=== PATIENT | female | born 1950 | race Caucasian/White ===

== ENCOUNTER 2016-08-31 13:35 | Inpatient (IN) | payer MEDICARE ==
--- NOTE | 2016-08-31 14:16 | ED ---
General Adult HPI - General Chief complaint: Arrhythmia/Palpitations Stated complaint: Pacemaker and defilultor went off/SOB Time Seen by Provider: 08/31/16 13:50 Source: patient, RN notes reviewed Mode of arrival: wheelchair Limitations: no limitations - History of Present Illness Initial comments: This is a 66-year-old female with past medical history significant for coronary artery disease hypertension and a pacer defibrillator placement back 5 or 6 years ago. Patient suggested while she was in the bathroom she believed her defibrillator went off twice. She's never had a cough before. He states she had no symptoms prior to the shock from the definitive earlier she states she's had no symptoms since. She denies any palpitations she denies any chest pain difficulty breathing shortness of breath. Patient denies being lightheaded or dizzy. Patient states she's not been sick recently she's had no recent fever chills or cough. Patient denies any abdominal pain. Patient denies nausea vomiting diarrhea. - Related Data Home Medications Medication Instructions Recorded Confirmed Clopidogrel Bisulfate [Clopidogrel] 75 mg PO DAILY 01/05/14 08/31/16 DULoxetine HCL 60 mg PO DAILY 01/05/14 08/31/16 Ondansetron HCl 4 mg PO TID 01/05/14 08/31/16 Benzonatate [Tessalon Perles] 100 mg PO TID PRN 01/06/14 08/31/16 Carvedilol [Coreg] 12.5 mg PO BID 01/06/14 08/31/16 Cholecalciferol [Vitamin D3] 5,000 unit PO DAILY@1200 01/06/14 08/31/16 Levothyroxine Sodium [Synthroid] 125 mcg PO DAILY 01/06/14 08/31/16 Omeprazole [PriLOSEC] 20 mg PO AC-BRKFST 01/06/14 08/31/16 Potassium Chloride [Klor-Con 10] 10 meq PO BID 01/06/14 08/31/16 Vitamin B Complex 1 tab PO DAILY 01/06/14 08/31/16 clonazePAM [KlonoPIN] 2 mg PO HS 01/06/14 08/31/16 hydrOXYzine HCL 20 mg PO TID PRN 01/06/14 08/31/16 tiZANidine HCL [Zanaflex] 8 mg PO Q8HR PRN 01/06/14 08/31/16 Aspirin 650 mg PO TID PRN 08/31/16 08/31/16 Atorvastatin [Lipitor] 40 mg PO DAILY 08/31/16 08/31/16 Furosemide [Lasix] 20 mg PO HS 08/31/16 08/31/16 Furosemide [Lasix] 40 mg PO BID@0900,1400 08/31/16 08/31/16 Lisinopril [Prinivil] 5 mg PO DAILY 08/31/16 08/31/16 fentaNYL [Duragesic 100MCG/HR] 1 patch TRANSDERM Q72H 08/31/16 08/31/16 oxyCODONE-APAP 10-325MG [Percocet 1 tab PO Q4-6H PRN 08/31/16 08/31/16 10-325 mg] traZODone HCL [Desyrel] 100 mg PO HS 08/31/16 08/31/16 Allergies Allergy/AdvReac Type Severity Reaction Status Date / Time doxycycline Allergy Swelling Verified 08/31/16 14:31 allopurinol AdvReac Unknown Verified 08/31/16 14:31 gabapentin [From Neurontin] AdvReac Unknown Verified 08/31/16 14:31 peppermint AdvReac Vomiting Verified 08/31/16 14:31 pregabalin [From Lyrica] AdvReac Unknown Verified 08/31/16 14:31 Review of Systems ROS Statement: Those systems with pertinent positive or pertinent negative responses have been documented in the HPI. ROS Other: All systems not noted in ROS Statement are negative. Past Medical History Past Medical History: Coronary Artery Disease (CAD), Heart Failure, Fibromyalgia , Hypertension, Renal Disease Additional Past Medical History / Comment(s): PACEMAKER/DEFIBRILLATOR History of Any Multi-Drug Resistant Organisms: None Reported Past Surgical History: Heart Catheterization, Hysterectomy, Pacemaker Past Anesthesia/Blood Transfusion Reactions: No Reported Reaction Type of Cardiac Device: Permanent Pacemaker Device Placement Date:: 09/2012 Past Psychological History: Anxiety, Depression Smoking Status: Former smoker Past Alcohol Use History: None Reported Past Drug Use History: None Reported General Exam - General Exam Comments Initial Comments: GENERAL: Patient is well-developed and well-nourished. Patient is nontoxic and well- hydrated and is in no acute distress. ENT: Neck is soft and supple. No significant lymphadenopathy is noted. Oropharynx is clear. Moist mucous membranes. Neck has full range of motion without eliciting any pain. EYES: The sclera were anicteric and conjunctiva were pink and moist. Extraocular movements were intact and pupils were equal round and reactive to light. Eyelids were unremarkable. PULMONARY: Unlabored respirations. Good breath sounds bilaterally. No audible rales rhonchi or wheezing was noted. CARDIOVASCULAR: There is a regular rate and rhythm without any murmurs gallops or rubs. Femoral pulses are equal bilaterally ABDOMEN: Soft and nontender with normal bowel sounds. No palpable organomegaly was noted. There is no palpable pulsatile mass. SKIN: Skin is clear with no lesions or rashes and otherwise unremarkable. NEUROLOGIC: Patient is alert and oriented x3. Cranial nerves II through XII are grossly intact. Motor and sensory are also intact. Normal speech, volume and content. Symmetrical smile. MUSCULOSKELETAL: Normal extremities with adequate strength and full range of motion. No lower extremity swelling or edema. No calf tenderness. LYMPHATICS: No significant lymphadenopathy is noted PSYCHIATRIC: Normal psychiatric evaluation. Normal interpersonal interactions appears functionally intact in deals appropriately with others. No signs of depression. No signs of anxiety. Limitations: no limitations Course Vital Signs 08/31/16 08/31/16 08/31/16 13:46 14:13 14:58 Temperature 99.2 F 98.5 F Pulse Rate 78 63 Pulse Rate [ 94 Coat Room Attendant ] Respiratory 16 18 Rate Blood Pressure 125/75 121/60 O2 Sat by Pulse 96 96 Oximetry 08/31/16 16:47 Temperature 98.0 F Pulse Rate 58 L Pulse Rate [ Coat Room Attendant ] Respiratory 16 Rate Blood Pressure 121/60 O2 Sat by Pulse 94 L Oximetry Medical Decision Making - Medical Decision Making EKG shows a ventricular paced rhythm at 70 bpm [place] interval is 132 QRS is 146 QT intervals 462 QTC is 498. Patient is in no distress currently and resting comfortably. We were unable to get the interrogation of the device done in the hospital we have been calling for 3-1/2 hours and we have yet to get a report. I spoke with Dr. Ly he did not want the patient to be discharged home unless a report could be red. He did not want the patient discharged home based on a verbal report. Spoke with Dr. Green's nurse practitioner I admitted the patient I consult cardiology - Lab Data Result diagrams: 08/31/16 14:25 08/31/16 14:25 Lab Results 08/31/16 08/31/16 08/31/16 Range/Units 14:25 14:25 14:25 WBC 6.7 (3.8-10.6) k/uL RBC 4.60 (3.80-5.40) m/uL Hgb 14.2 (11.4-16.0) gm/dL Hct 41.9 (34.0-46.0) % MCV 91.2 (80.0-100.0) fL MCH 31.0 (25.0-35.0) pg MCHC 34.0 (31.0-37.0) g/dL RDW 13.0 (11.5-15.5) % Plt Count 161 (150-450) k/uL Neutrophils % 52 % Lymphocytes % 37 % Monocytes % 6 % Eosinophils % 2 % Basophils % 1 % Neutrophils # 3.5 (1.3-7.7) k/uL Lymphocytes # 2.5 (1.0-4.8) k/uL Monocytes # 0.4 (0-1.0) k/uL Eosinophils # 0.1 (0-0.7) k/uL Basophils # 0.0 (0-0.2) k/uL PT (9.0-12.0) sec INR (<1.1) APTT (22.0-30.0) sec Sodium 140 (137-145) mmol/L Potassium 4.1 (3.5-5.1) mmol/L Chloride 98 (98-107) mmol/L Carbon Dioxide 34 H (22-30) mmol/L Anion Gap 8 mmol/L BUN 24 H (7-17) mg/dL Creatinine 0.84 (0.52-1.04) mg/dL Est GFR (MDRD) Af Amer >60 (>60 ml/min/1.73 sqM) Est GFR (MDRD) Non-Af >60 (>60 ml/min/1.73 sqM) Glucose 90 (74-99) mg/dL Calcium 8.9 (8.4-10.2) mg/dL Magnesium 1.8 (1.6-2.3) mg/dL Total Bilirubin 0.7 (0.2-1.3) mg/dL AST 27 (14-36) U/L ALT 35 (9-52) U/L Alkaline Phosphatase 65 (38-126) U/L Total Creatine Kinase 66 (30-135) U/L CK-MB (CK-2) 1.1 (0.0-2.4) ng/mL CK-MB (CK-2) Rel Index 1.7 Troponin I <0.012 (0.000-0.034) ng/mL Total Protein 7.1 (6.3-8.2) g/dL Albumin 4.0 (3.5-5.0) g/dL 08/31/16 Range/Units 14:25 WBC (3.8-10.6) k/uL RBC (3.80-5.40) m/uL Hgb (11.4-16.0) gm/dL Hct (34.0-46.0) % MCV (80.0-100.0) fL MCH (25.0-35.0) pg MCHC (31.0-37.0) g/dL RDW (11.5-15.5) % Plt Count (150-450) k/uL Neutrophils % % Lymphocytes % % Monocytes % % Eosinophils % % Basophils % % Neutrophils # (1.3-7.7) k/uL Lymphocytes # (1.0-4.8) k/uL Monocytes # (0-1.0) k/uL Eosinophils # (0-0.7) k/uL Basophils # (0-0.2) k/uL PT 9.5 (9.0-12.0) sec INR 0.9 (<1.1) APTT 25.8 (22.0-30.0) sec Sodium (137-145) mmol/L Potassium (3.5-5.1) mmol/L Chloride (98-107) mmol/L Carbon Dioxide (22-30) mmol/L Anion Gap mmol/L BUN (7-17) mg/dL Creatinine (0.52-1.04) mg/dL Est GFR (MDRD) Af Amer (>60 ml/min/1.73 sqM) Est GFR (MDRD) Non-Af (>60 ml/min/1.73 sqM) Glucose (74-99) mg/dL Calcium (8.4-10.2) mg/dL Magnesium (1.6-2.3) mg/dL Total Bilirubin (0.2-1.3) mg/dL AST (14-36) U/L ALT (9-52) U/L Alkaline Phosphatase (38-126) U/L Total Creatine Kinase (30-135) U/L CK-MB (CK-2) (0.0-2.4) ng/mL CK-MB (CK-2) Rel Index Troponin I (0.000-0.034) ng/mL Total Protein (6.3-8.2) g/dL Albumin (3.5-5.0) g/dL Disposition Clinical Impression: Defibrillator discharge Disposition: ADMITTED IP TO THIS HOSP Referrals: Anita Segal III, MD [Primary Care Provider] - 1-2 days Time of Disposition: 18:13
[2016-08-31 14:45] LABS: Basophils % (A) 1 %; CH 31.1; CHCM 34.2; Eosinophils # (A) 0.1 k/uL (0-0.7); Eosinophils % (A) 2 %; HCT 41.9 % (34.0-46.0); HDW 2.52; HGB 14.2 gm/dL (11.4-16.0); Luc # (Auto) 0.18; Luc % (Auto) 3; Lymphocytes # (A) 2.5 k/uL (1.0-4.8); Lymphocytes % (A) 37 %; MCV 91.2 fL (80.0-100.0); Mean Platelet Volume 6.4; Monocytes # (A) 0.4 k/uL (0-1.0); Monocytes % (A) 6 %; Neutrophils # (A) 3.5 k/uL (1.3-7.7); Neutrophils % (A) 52 %; WBC 6.7 k/uL (3.8-10.6); WBC (Perox) 6.09
[2016-08-31 14:56] LABS: INR 0.9 (<1.1); Partial Thromboplastin Time 25.8 sec (22.0-30.0); Prothrombin Time 9.5 sec (9.0-12.0)
[2016-08-31 15:01] LABS: ALT 35 U/L (9-52); AST 27 U/L (14-36); Alkaline Phosphatase 65 U/L (38-126); Anion Gap 8 mmol/L; Blood Urea Nitrogen 24 mg/dL (7-17); Calcium 8.9 mg/dL (8.4-10.2); Carbon Dioxide 34 mmol/L (22-30); Chloride 98 mmol/L (98-107); Glucose 90 mg/dL (74-99); Magnesium 1.8 mg/dL (1.6-2.3); Non-African American GFR(MDRD) >60 (>60 ml/min/1.73 sqM); Potassium 4.1 mmol/L (3.5-5.1); Sodium 140 mmol/L (137-145); Total Bilirubin 0.7 mg/dL (0.2-1.3); Total Protein 7.1 g/dL (6.3-8.2)
[2016-08-31] MEDS ORDERED: ONDANSETRON 4 MG/2 ML VIAL IVP STA (15:03)
[2016-08-31 15:09] LABS: Creatine Kinase 66 U/L (30-135)
--- NOTE | 2016-08-31 15:19 | XR ---
EXAMINATION TYPE: XR chest 2V DATE OF EXAM: 08/31/2016 COMPARISON: 10/11/2015 TECHNIQUE: PA and lateral views submitted. HISTORY: Chest pain FINDINGS: The lungs are clear and there is no pneumothorax, pleural effusion, or focal pneumonia. Cardiac dev ice noted. No overt failure. Heart size stable. IMPRESSION: 1. No acute process.
[2016-08-31 15:21] LABS: Creatine Kinase MB 1.1 ng/mL (0.0-2.4); Troponin I <0.012 ng/mL (0.000-0.034)
[2016-08-31] MEDS ORDERED: POTASSIUM CHLORIDE ER 10 MEQ TAB.ER.PRT PO STA (18:11)
[2016-08-31] MEDS ORDERED: SODIUM CHLORIDE 0.9% 1,000 ML IV ONE (18:14)
[2016-08-31] MEDS ORDERED: oxyCODONE-APAP 10-325MG 1 EACH TAB PO STA (20:47)
[2016-08-31] MEDS ORDERED: diphenhydrAMINE 25 MG CAP PO PRN (23:24)
[2016-08-31] MEDS ORDERED: DULoxetine HCL 30 MG CAPSULE.DR PO SCH (23:30)
[2016-08-31] MEDS ORDERED: clonazePAM 1 MG TAB PO SCH (23:30)
[2016-08-31] MEDS ORDERED: LATANOPROST 0.005% OPHTH DROPS 2.5 ML BTL LEFT EYE SCH (23:45)
[2016-08-31] MEDS ORDERED: LISINOPRIL 5 MG TAB PO SCH (23:45)
[2016-08-31] MEDS ORDERED: LEVOTHYROXINE 125 MCG TAB PO SCH (23:45)
[2016-08-31] MEDS ORDERED: traZODone HCL 100 MG TAB PO SCH (23:45)
[2016-08-31] MEDS ORDERED: ARTIFICIAL TEARS-HYPROMELLOSE DROPS 15 ML BTL LEFT EYE PRN (23:46)
[2016-08-31] MEDS ORDERED: FUROSEMIDE 40 MG TAB PO STA (23:47)
[2016-08-31] MEDS ORDERED: ONDANSETRON 4 MG/2 ML VIAL IVP PRN (23:48)
[2016-08-31] MEDS ORDERED: LORATADINE 10 MG TAB PO PRN (23:48)
[2016-09-01] MEDS: CLOPIDOGREL 75 MG TAB PO SCH ×2 (00:19→09:34)
[2016-09-01] MEDS: PANTOPRAZOLE 40 MG TABLET PO SCH ×2 (00:20→06:56)
[2016-09-01] MEDS: POTASSIUM CHLORIDE ER 10 MEQ TAB.ER.PRT PO SCH ×2 (00:20→09:34)
[2016-09-01] MEDS: tiZANidine 4 MG TAB PO PRN ×2 (00:20→11:16)
[2016-09-01] MEDS: oxyCODONE-APAP 10-325MG 1 EACH TAB PO PRN ×3 (00:21→11:18)
[2016-09-01] MEDS ORDERED: ATORVASTATIN 40 MG TAB PO SCH ×2 (01:15→21:00)
[2016-09-01] MEDS: CARVEDILOL 12.5 MG TAB PO SCH ×2 (01:30→06:56)
[2016-09-01] MEDS: hydrOXYzine HCL 10 MG TAB PO PRN ×2 (01:30→11:15)
[2016-09-01 02:36] VITALS: RESP 18
[2016-09-01] MEDS ORDERED: CARVEDILOL 12.5 MG TAB PO SCH (07:30)
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
[2016-09-01] MEDS ORDERED: FUROSEMIDE 40 MG TAB PO SCH (09:00)
[2016-09-01] MEDS ORDERED: ASPIRIN 81 MG CHEW PO SCH (09:00)
--- NOTE | 2016-09-01 11:07 | P.PN ---
Progress Note - Text This is an addendum to the dictated cardiology consultation. The patient has a history of severe nonischemic cardiomyopathy, post ICD implant who felt that she had the discharge from her device twice on the day before yesterday. She has mild chronic dyspnea on exertion and occasional peripheral edema. She has no prior history of device discharges. Her device was interrogated yesterday and showed no evidence of significant arrhythmia or any discharges. On the monitor she has no evidence of ventricle tachycardia arrhythmia. She is complaints as well of symptoms suggestive of hemidiaphragmatic pacing. We will obtain an echocardiogram with Doppler, continue the beta blockers and depending on her progress further recommendations will be made. Thank you for this consult we will follow with you.
[2016-09-01] MEDS: MAGNESIUM SULFATE-D5W PMX 1 GM in DEXTROSE/WATER 1 100ML.BAG IVPB SCH ×2 (11:16→12:52)
--- NOTE | 2016-09-01 12:14 | ECHOF ---
Referral Reason:aicd discharge MEASUREMENTS -------- HEIGHT: 160.0 cm WEIGHT: 84.8 kg BP: 110/69 IVSd: 1.0 cm (0.6 - 1.1) LVIDd: 4.0 cm (3.9 - 5.3) LVPWd: 1.3 cm (0.6 - 1.1) IVSs: 1.7 cm LVIDs: 1.6 cm LVPWs: 1.9 cm Ao Diam: 2.7 cm (2.0 - 3.7) AV Cusp: 1.5 cm (1.5 - 2.6) LA Diam: 3.6 cm (2.7 - 3.8) MV EXCURSION: 11.800 mm (> 18.000) MV EF SLOPE: 56 mm/s (70 - 150) EPSS: 0.6 cm MV E Fortino: 0.88 m/s MV DecT: 235 ms MV A Fortino: 0.93 m/s MV E/A Ratio: 0.95 RAP: 5.00 mmHg RVSP: 21.15 mmHg FINDINGS -------- Sinus rhythm. AICD Pacemaker This was a technically good study. Left ventricular wall thickness is normal. Overall left ventricular systolic function is normal with, an EF between 55 - 60 %. The right ventricle is normal in size and function. The left atrium is normal in size. The right atrium is normal in size. Aortic valve is trileaflet and is mildly thickened. There is trace mitral regurgitation. Trace tricuspid regurgitation present. The right ventricular systolic pressure, as measured by Doppler, is 21.15mmHg. Pulmonic valve appears structurally normal. The aortic root size is normal. Normal inferior vena cava with normal inspiratory collapse consistent with estimated right atrial pressure of 5 mmHg. The pericardium is normal. CONCLUSIONS -------- 1. Sinus rhythm. 2. Aortic valve is trileaflet and is mildly thickened. 3. There is trace mitral regurgitation. 4. Trace tricuspid regurgitation present. 5. The right ventricular systolic pressure, as measured by Doppler, is 21.15mmHg. 6. Pulmonic valve appears structurally normal. 7. The aortic root size is normal. 8. Normal inferior vena cava with normal inspiratory collapse consistent with estimated right atrial pressure of 5 mmHg. 9. The pericardium is normal. 10. AICD 11. Pacemaker 12. This was a technically good study. 13. Left ventricular wall thickness is normal. 14. Overall left ventricular systolic function is normal with, an EF between 55 - 60 %. 15. The right ventricle is normal in size and function. 16. The left atrium is normal in size. 17. The right atrium is normal in size. ESTIMATION MANAGER: Chiquita Rubin RDCS
[2016-09-01 12:59] VITALS: BP 111/57; PULSE 66; TEMP 98.2
--- NOTE | 2016-09-01 19:17 | HP ---
DATE OF ADMISSION: This dictation is both H&P and discharge summary. REASON FOR ADMISSION: ( ) This is an 78-year-old with nonischemic cardiomyopathy with AICD implantation, came in with an episode that does not look like typically any discharge for the AICD. Had an episode where patient felt like she was thrown onto the door and she thought she may have ( ). Because of this the patient came to the hospital. The patient's electrolytes are essentially within normal limits except for magnesium of 1.8, which is being supplemented. The patient underwent AICD interrogation, which essentially did not show any significant abnormality or significant discharges or any ( ) abnormality or any significant events. Patient denied any fever or chills. Patient denied any chest pain at this point of time. Patient will be discharged when cleared. Patient was evaluated by Cardiology. REVIEW OF SYSTEMS: CONSTITUTIONAL: No fever, no malaise, no fatigue. HEENT: No recent visual problems or hearing problems. Denied any sore throat. CARDIOVASCULAR: No chest pain, orthopnea, PND, no palpitations, no syncope. PULMONARY: No shortness of breath, no cough, no hemoptysis. GASTROINTESTINAL: No diarrhea, no nausea, no vomiting, no abdominal pain. Normoactive bowel sounds. NEUROLOGICAL: No headaches, no weakness, no numbness. HEMATOLOGICAL: Denies any bleeding or petechiae. GENITOURINARY: Denies any burning micturition, frequency, or urgency. MUSCULOSKELETAL/RHEUMATOLOGICAL: Denies any joint pain, swelling, or any muscle pain. ENDOCRINE: Denies any polyuria or polydipsia. The rest of the 14 point review of systems is negative. PAST MEDICAL HISTORY: Congestive heart failure, nonischemic cardiomyopathy, fibromyalgia, hypertension. The patient has mitral valve prolapse. Cardiac catheterization, hysterectomy, AICD placement. Anxiety and depression. SOCIAL HISTORY: Former smoker, denied any alcohol abuse or any drug abuse. FAMILY HISTORY: Father had coronary artery disease. Mother had cancer. HOME MEDICATIONS: Plavix, Duloxetine, odansetron, Tessalon Perles, Coreg, cholecalciferol, levothyroxine, omeprazole, potassium chloride, vitamin B, clonazepam, hydroxyzine, ( ), aspirin, atorvastatin, Lasix, atenolol, lisinopril, Benadryl, ( ), oxycodone, and trazodone. ALLERGIES: ( ), ALLOPURINOL, GABAPENTIN, ( ), PREGABALIN. PHYSICAL EXAMINATION: Temperature 97.4, pulse 67, respiratory rate of 18, blood pressure 145/66, saturating at 93% on room air. GENERAL: The patient is alert and oriented x3, not in any acute distress. Well developed, well nourished. HEENT: Pupils are round and equally reacting to light. EOMI. No scleral icterus. No conjunctival pallor. Normocephalic, atraumatic. No pharyngeal erythema. No thyromegaly. CARDIOVASCULAR: S1 and S2 present. No murmurs, rubs, or gallops. PULMONARY: Chest is clear to auscultation, no wheezing or crackles. ABDOMEN: Soft, nontender, nondistended, normoactive bowel sounds. No palpable organomegaly. MUSCULOSKELETAL: No joint swelling or deformity. EXTREMITIES: No cyanosis, clubbing, or pedal edema. NEUROLOGICAL: Gross neurological examination did not reveal any focal deficits. SKIN: No rashes. LABORATORY DATA: CBC and CMP no significant abnormalities were appreciated except for magnesium as mentioned above. Troponins are negative. ASSESSMENT AND PLAN: 1. Possibility of automatic implantable cardiovascular defibrillator discharge ruled out and patient's electrolytes are being corrected and patient is being discharged. 2. Nonischemic cardiomyopathy without any acute exacerbation. 3. Hyperlipidemia. 4. Hypertension. 5. ( ). Patient had an echocardiogram during this hospitalization. Patient was evaluated by Cardiology. Patient has normal ejection fraction now. Patient will be discharged today with follow up with his repair servicer, Dr. Laureen Ruiz as an outpatient. This dictation is both H&P and discharge summary. Discharge diet cardiac. CHF discharge instructions will be provided. Patient will follow with Dr. Jonnie Segal on September 06 at 2:45. Activity as tolerated.
[2016-09-01] MEDS ORDERED: FUROSEMIDE 20 MG TAB PO SCH (21:00)
[2016-09-01] MEDS ORDERED: LISINOPRIL 5 MG TAB PO SCH (21:00)
== END 2016-09-01 14:16 | disposition home or self-care (01) | DRG 951 ==
LOC: EC 13:35 → 6SEL 18:14
PROVIDERS: ADMIT Hospitalist; ATTEND Hospitalist
DX: Z03.89 Encounter for observation for other suspected diseases and conditions ruled out (principal); I42.9 Cardiomyopathy, unspecified; I11.0 Hypertensive heart disease with heart failure; I50.9 Heart failure, unspecified; E03.9 Hypothyroidism, unspecified; E78.5 Hyperlipidemia, unspecified; I25.10 Atherosclerotic heart disease of native coronary artery without angina pectoris; I34.1 Nonrheumatic mitral (valve) prolapse; M79.7 Fibromyalgia; F32.9 Major depressive disorder, single episode, unspecified; F41.9 Anxiety disorder, unspecified; I65.29 Occlusion and stenosis of unspecified carotid artery; Z95.810 Presence of automatic (implantable) cardiac defibrillator; Z79.02 Long term (current) use of antithrombotics/antiplatelets; Z79.82 Long term (current) use of aspirin; Z79.899 Other long term (current) drug therapy; Z87.891 Personal history of nicotine dependence; Z88.1 Allergy status to other antibiotic agents; Z88.8 Allergy status to other drugs, medicaments and biological substances; Z82.49 Family history of ischemic heart disease and other diseases of the circulatory system
CPT/HCPCS: 36415; 71020; 80053; 82550; 82553; 83735; 84484; 85025; 85610; 85730; 93005; 93306; 96374; 99285

== ENCOUNTER 2018-03-06 11:26 | Day surgery (SDC) | payer MEDICARE ==
[2018-03-01 14:54] VITALS: BMI 34.9
[~2018-03-06 11:26] MED LIST: SODIUM CHLORIDE 0.9% 1,000 ML IV SCH; ceFAZolin 1,000 MG in SODIUM CHLORIDE 0.9% IRRIGATIO 1,000 ML IRRIGATION ONE; ceFAZolin 1,000 MG in SODIUM CHLORIDE 0.9% IRRIGATIO 250 ML IRRIGATION ONE; ceFAZolin 2,000 MG in DEXTROSE/WATER 1 50ML.BAG IVPB STA; ceFAZolin IN SWFI 2 GM/20 ML SYRINGE IVP STA
[2018-03-06] MEDS ORDERED: fentaNYL (PF) 50 MCG/ML 2 ML AMP IVP STA (14:14)
[2018-03-06 14:15] LABS: Glucose,Whole Blood 99 mg/dL (75-99)
[2018-03-06] MEDS ORDERED: PROPOFOL 10 MG/ML 20 ML VIAL IV ONE (15:55)
[2018-03-06] MEDS ORDERED: fentaNYL (PF) 50 MCG/ML 2 ML AMP ONE (15:55)
[2018-03-06] MEDS ORDERED: PHENYLEPHRINE-0.9% NACL SYG 1 MG/10 ML SYRINGE ONE (15:55)
[2018-03-06] MEDS ORDERED: MIDAZOLAM 2 MG/2 ML VIAL ONE (15:55)
[2018-03-06] MEDS ORDERED: LIDOCAINE 1% INJ 10MG/ML (20 ML MDV) ONE (16:19)
[2018-03-06] MEDS ORDERED: HYDROcodone/APAP 5-325MG 1 EACH TAB PO PRN (16:22)
[2018-03-06] MEDS ORDERED: ACETAMINOPHEN TAB 325 MG TAB PO PRN (16:22)
[2018-03-06] MEDS ORDERED: LIDOCAINE 1% INJ 10MG/ML (20 ML MDV) SQ ONE (16:37)
--- NOTE | 2018-03-06 17:42 | P.CRDCN ---
History of Present Illness History of present illness: 2-D echo images were reviewed. Technically difficult study was suboptimal acoustic windows reduced LV systolic function with anterior and septal hypokinesis, severe. The inferior lateral wall appears better preserved. Ejection fraction 40-45% Past Medical History Past Medical History: Heart Failure, Eye Disorder, Fibromyalgia, GERD/Reflux, Hyperlipidemia, Myocardial Infarction ([place]), Skin Disorder, Thyroid Disorder Additional Past Medical History / Comment(s): PACEMAKER/DEFIBRILLATOR. Carotid Stenosis. Congential MVP. RBBB. Hx viral meningitis. EPISODE OF KIDNEY FAILURE X1. GLAUCOMA MARIAN EYES. "TEND TO GET LOW BLOOD SUGAR." SEASONAL ALLERGIES/SINUS. See Dr Leo's H&P. PT STATES SHE HAS NO B/P PROBLEMS Last Myocardial Infarction Date:: UNKNOWN History of Any Multi-Drug Resistant Organisms: None Reported Past Surgical History: AICD, Bladder Surgery, Heart Catheterization, Hysterectomy, Pacemaker Additional Past Surgical History / Comment(s): 2 Failed Bladder Suspensions. MARIAN CATARACTS. Past Anesthesia/Blood Transfusion Reactions: Blood Transfusion Reaction Additional Past Anesthesia/Blood Transfusion Reaction / Comment(s): DEVELOPED WELTS ON BUTTOCKS W/ TRANSFUSION IN PAST. Type of Cardiac Device: Permanent Pacemaker, AICD Device Placement Date:: 09/2012 Smoking Status: Current every day smoker - Past Family History Father Family Medical History: Coronary Artery Disease (CAD) Mother Family Medical History: Cancer Medications and Allergies Home Medications Medication Instructions Recorded Confirmed Type Ondansetron HCl 4 mg PO TID PRN 01/05/14 03/01/18 History Benzonatate [Tessalon Perles] 100 mg PO TID PRN 01/06/14 03/06/18 History Levothyroxine Sodium [Synthroid] 125 mcg PO HS 01/06/14 03/06/18 History Omeprazole [PriLOSEC] 20 mg PO BID 01/06/14 03/06/18 History Potassium Chloride [Klor-Con 10] 10 meq PO BID 01/06/14 03/06/18 History tiZANidine HCL [Zanaflex] 8 mg PO TID 01/06/14 03/06/18 History Aspirin 325 mg PO BID 08/31/16 03/06/18 History Dextran 70/Hypromellose [Genteal 1 drop BOTH EYES DAILY 08/31/16 03/06/18 History Tears 0.1%-0.3% Drop] Furosemide [Lasix] 20 mg PO HS 08/31/16 03/06/18 History Furosemide [Lasix] 40 mg PO BID@0900,1400 08/31/16 03/06/18 History Latanoprost Ophth [Xalatan 0.005%] 1 drop LEFT EYE HS 08/31/16 03/06/18 History oxyCODONE-APAP 10-325MG [Percocet 1 tab PO Q4-6H PRN 08/31/16 03/06/18 History 10-325 mg] traZODone HCL [Desyrel] 25 mg PO HS PRN 08/31/16 03/06/18 History DULoxetine HCL [Cymbalta] 120 mg PO HS 01/04/18 03/06/18 History clonazePAM [KlonoPIN] 2 mg PO HS 01/04/18 03/06/18 History fentaNYL 75MCG/HR PATCH [Duragesic 1 patch TOPICAL Q2D 03/01/18 03/06/18 History 75MCG/HR] hydrOXYzine HCL [Atarax] 50 mg PO TID PRN 03/01/18 03/06/18 History Atorvastatin [Lipitor] 10 mg PO DAILY #90 tab 03/06/18 Rx Losartan [Cozaar] 25 mg PO DAILY #90 tab 03/06/18 Rx Metoprolol Succinate [Kapspargo 25 mg PO DAILY #90 cap.spr.24 03/06/18 Rx Sprinkle] Allergies Allergy/AdvReac Type Severity Reaction Status Date / Time doxycycline Allergy Swelling Verified 03/01/18 14:43 sulfamethoxazole AdvReac Severe Nausea Verified 03/01/18 14:43 [From Bactrim] trimethoprim [From Bactrim] AdvReac Severe Nausea Verified 03/01/18 14:43 allopurinol AdvReac "kidneys Verified 03/01/18 14:43 shut down" gabapentin [From Neurontin] AdvReac Nausea & Verified 03/01/18 14:43 Vomiting peppermint AdvReac Vomiting Verified 03/01/18 14:43 pregabalin [From Lyrica] AdvReac "memory Verified 03/01/18 14:43 loss" Ujjmptw-Ckx-Ojl Reductase AdvReac PAINFUL Verified 03/01/18 14:43 Inhibitor JOINTS suvorexant [From Belsomra] AdvReac Hallucinati Verified 03/01/18 14:43 ons Physical Exam Vitals: Vital Signs Temp Pulse Resp BP Pulse Ox 03/06/18 15:45 97 03/06/18 14:31 16 95 03/06/18 11:45 97.9 F 100 18 149/81 94 L Intake and Output 03/06/18 03/06/18 03/06/18 06:59 14:59 22:59 Intake Total 125 0 Balance 125 0 Intake: IV 125 0 Other: Weight 89.1 kg Results Current Medications Generic Name Dose Route Start Last Admin Trade Name Freq PRN Reason Stop Dose Admin Acetaminophen 650 mg 03/06/18 16:22 Tylenol Tab PO Q6HR PRN Mild Pain Hydrocodone Bitart/Acetaminophen 1 each 03/06/18 16:22 [place] 5-325 PO Q4HR PRN Pain Aspirin 325 mg 03/06/18 21:00 Aspirin PO BID ARUN Atorvastatin Calcium 10 mg 03/07/18 09:00 Lipitor PO DAILY ARUN Cefazolin Sodium 2 gm 03/06/18 22:00 Kefzol IVP 03/07/18 12:01 Q6HR ARUN Fentanyl 1 patch 03/06/18 16:30 Duragesic 75mcg/Hr Patch TRANSDERM Q2D ARUN Acetaminophen 1,000 mg/ IV 100 mls @ 400 mls/hr 03/06/18 18:00 Solution IVPB 03/06/18 18:14 ONCE ONE Losartan Potassium 12.5 mg 03/07/18 09:00 Cozaar PO DAILY ARUN Metoprolol Succinate 12.5 mg 03/07/18 09:00 Toprol Xl PO DAILY ARUN Sodium Chloride 10 ml 03/06/18 21:00 Saline Flush IV Q12HR ARUN Intake and Output 03/06/18 03/06/18 03/06/18 06:59 14:59 22:59 Intake Total 125 0 Balance 125 0 Intake: IV 125 0 Other: Weight 89.1 kg Patient Weight 03/07/18 06:59 Weight 89.1 kg
[2018-03-06] MEDS ORDERED: ACETAMINOPHEN IV (For NPO) 1,000 MG in EMPTY BAG 1 BAG IVPB ONE (18:00)
[2018-03-06 19:02] VITALS: RESP 18
[2018-03-06] MEDS ORDERED: BENZONATATE 100 MG CAP PO PRN (20:14)
[2018-03-06] MEDS ORDERED: ONDANSETRON 4 MG TAB PO PRN (20:14)
[2018-03-06] MEDS ORDERED: FUROSEMIDE 20 MG TAB PO SCH (21:00)
[2018-03-06] MEDS ORDERED: LEVOTHYROXINE 125 MCG TAB PO SCH (21:00)
[2018-03-06] MEDS ORDERED: clonazePAM 1 MG TAB PO SCH (21:00)
[2018-03-06] MEDS ORDERED: traZODone HCL 50 MG TAB PO PRN (21:00)
[2018-03-06] MEDS ORDERED: LATANOPROST 0.005% OPHTH DROPS 2.5 ML BTL LEFT EYE SCH (21:00)
[2018-03-06] MEDS ORDERED: DULoxetine HCL 60 MG CAPSULE.DR PO SCH (21:00)
[2018-03-06] MEDS: tiZANidine 4 MG TAB PO SCH (21:10)
[2018-03-06] MEDS: PANTOPRAZOLE 40 MG TABLET PO SCH (21:11)
[2018-03-06] MEDS: ASPIRIN 325 MG TAB PO SCH (21:11)
[2018-03-06] MEDS: ceFAZolin IN SWFI 2 GM/20 ML SYRINGE IVP SCH (21:12)
[2018-03-06] MEDS: POTASSIUM CHLORIDE ER 10 MEQ TAB.ER.PRT PO SCH (21:12)
[2018-03-06] MEDS: oxyCODONE-APAP 10-325MG 1 EACH TAB PO PRN (21:22)
[2018-03-06] MEDS: hydrOXYzine HCL 25 MG TAB PO PRN (21:25)
[2018-03-07] MEDS: oxyCODONE-APAP 10-325MG 1 EACH TAB PO PRN ×3 (02:26→10:44)
[2018-03-07] MEDS: ceFAZolin IN SWFI 2 GM/20 ML SYRINGE IVP SCH ×3 (03:24→14:13)
[2018-03-07] MEDS: POTASSIUM CHLORIDE ER 10 MEQ TAB.ER.PRT PO SCH (07:51)
[2018-03-07] MEDS: ASPIRIN 325 MG TAB PO SCH (07:51)
[2018-03-07] MEDS: FUROSEMIDE 40 MG TAB PO SCH ×2 (07:51→14:19)
[2018-03-07] MEDS: PANTOPRAZOLE 40 MG TABLET PO SCH (07:52)
[2018-03-07] MEDS: tiZANidine 4 MG TAB PO SCH (07:52)
[2018-03-07] MEDS: hydrOXYzine HCL 25 MG TAB PO PRN (08:05)
--- NOTE | 2018-03-07 08:05 | P.DS ---
Providers Attending physician: Pastor Leo Primary care physician: [facility] Course: Patient is doing well. She has no chest discomfort dizziness lightheadedness or palpitations ICD site is healed well is no hematoma no bruising no shock H Heart sounds are normal breath sounds are clear Blood pressure 97/50 milligrams of mercury pulse rate is in the 60s afebrile Normal heart sounds Abdomen soft nontender Impression Cardiomyopathy status post biventricular ICD many years back device at [facility] and biventricular ICD generator change was performed Noncompliance with diet and medications States she is intolerant of atorvastatin because of muscle pains Beta blockers and current medications make her extremely sleepy Suggest Low-dose losartan in the morning Low-dose long-acting metoprolol at night Try Pravachol 10 mg by mouth daily instead of atorvastatin Continue other medications including Lasix Follow-up in the device clinic in one week, keep wound dry for one week Patient Condition at Discharge: Stable Plan - Discharge Summary Discharge Rx Participant: No New Discharge Prescriptions: New Atorvastatin [Lipitor] 10 mg PO DAILY #90 tab Losartan [Cozaar] 25 mg PO DAILY #90 tab Metoprolol Succinate [Kapspargo Sprinkle] 25 mg PO DAILY #90 cap.spr.24 No Action Ondansetron HCl 4 mg PO TID PRN PRN Reason: Nausea And Vomiting tiZANidine HCL [Zanaflex] 8 mg PO TID Benzonatate [Tessalon Perles] 100 mg PO TID PRN PRN Reason: Congestion Levothyroxine Sodium [Synthroid] 125 mcg PO HS Omeprazole [PriLOSEC] 20 mg PO BID Potassium Chloride [Klor-Con 10] 10 meq PO BID Furosemide [Lasix] 40 mg PO BID@0900,1400 Furosemide [Lasix] 20 mg PO HS oxyCODONE-APAP 10-325MG [Percocet 10-325 mg] 1 tab PO Q4-6H PRN PRN Reason: Breakthrough Pain traZODone HCL [Desyrel] 25 mg PO HS PRN PRN Reason: depression Aspirin 325 mg PO BID Latanoprost Ophth [Xalatan 0.005%] 1 drop LEFT EYE HS Dextran 70/Hypromellose [Genteal Tears 0.1%-0.3% Drop] 1 drop BOTH EYES DAILY clonazePAM [KlonoPIN] 2 mg PO HS DULoxetine HCL [Cymbalta] 120 mg PO HS hydrOXYzine HCL [Atarax] 50 mg PO TID PRN PRN Reason: Itching fentaNYL 75MCG/HR PATCH [Duragesic 75MCG/HR] 1 patch TOPICAL Q2D Discharge Medication List Ondansetron HCl 4 mg PO TID PRN 01/05/14 [History] Benzonatate [Tessalon Perles] 100 mg PO TID PRN 01/06/14 [History] Levothyroxine Sodium [Synthroid] 125 mcg PO HS 01/06/14 [History] Omeprazole [PriLOSEC] 20 mg PO BID 01/06/14 [History] Potassium Chloride [Klor-Con 10] 10 meq PO BID 01/06/14 [History] tiZANidine HCL [Zanaflex] 8 mg PO TID 01/06/14 [History] Aspirin 325 mg PO BID 08/31/16 [History] Dextran 70/Hypromellose [Genteal Tears 0.1%-0.3% Drop] 1 drop BOTH EYES DAILY [History] Furosemide [Lasix] 20 mg PO HS 08/31/16 [History] Furosemide [Lasix] 40 mg PO BID@0900,1400 08/31/16 [History] Latanoprost Ophth [Xalatan 0.005%] 1 drop LEFT EYE HS 08/31/16 [History] oxyCODONE-APAP 10-325MG [Percocet 10-325 mg] 1 tab PO Q4-6H PRN 08/31/16 [ History] traZODone HCL [Desyrel] 25 mg PO HS PRN 08/31/16 [History] DULoxetine HCL [Cymbalta] 120 mg PO HS 01/04/18 [History] clonazePAM [KlonoPIN] 2 mg PO HS 01/04/18 [History] fentaNYL 75MCG/HR PATCH [Duragesic 75MCG/HR] 1 patch TOPICAL Q2D 03/01/18 [ History] hydrOXYzine HCL [Atarax] 50 mg PO TID PRN 03/01/18 [History] Atorvastatin [Lipitor] 10 mg PO DAILY #90 tab 03/06/18 [Rx] Losartan [Cozaar] 25 mg PO DAILY #90 tab 03/06/18 [Rx] Metoprolol Succinate [Kapspargo Sprinkle] 25 mg PO DAILY #90 cap.spr.24 [Rx] Follow up Appointment(s)/Referral(s): Seth Ruiz MD [STAFF PHYSICIAN] - 1 Week (Device clinic follow-up in [address] Ruiz as previously scheduled) Activity/Diet/Wound Care/Special Instructions: PATIENT EDUCATION MATERIAL Instructions following a heart rhythm device implant. 1. Keep dressing DRY for 5 DAYS. You may cover the area with Saran or Cling Wrap, prior to a shower. 2. The dressing will be removed in the Device Clinic at [facility]. Absorbable sutures were used to close the wound. 3. Avoid raising the left arm above the shoulder level. 4 week restriction 4. Avoid arm movements, like backscratching, rubbing the head, or pulling on a cord. 4 weeks restriction 5. Gentle range of motion movements of the shoulder, closest to the incision should be performed to avoid a frozen shoulder. (Pendulum exercises of the shoulder) 6. The opposite arm may be used freely. 7. Avoid driving for 7 days. 8. Avoid activities such as golfing, swimming, weed whacking, lifting more than 10 pounds weight, bowling, gymnastics and weight training/lifting. (6 weeks restriction) 9. Activities such as wood chopping with an axe, pull-ups in the gymnasium, power lifting, arc-welding, being close to home induction cooktops will always be a problem. 10. Arm sling is only a reminder not to raise the arm above the head. You do not need to keep the arm completely immobilized. Your free to move the arm and use it and for normal activities. In case of any problems, please call [facility] [place], @ [phone], Attention: Device Clinic Device clinic follow-up in 5 days Follow-up with primary shank piece tacker in 2-3 months Discharge Disposition: HOME SELF-CARE
[2018-03-07] MEDS ORDERED: LOSARTAN 25 MG TAB PO SCH (09:00)
[2018-03-07] MEDS ORDERED: ARTIFICIAL TEARS-HYPROMELLOSE DROPS 15 ML BTL BOTH EYES SCH (09:00)
[2018-03-07] MEDS ORDERED: METOPROLOL SUCCINATE (ER) 25 MG TAB.ER.24H PO SCH (09:00)
[2018-03-07] MEDS ORDERED: ATORVASTATIN 10 MG TAB PO SCH (09:00)
--- NOTE | 2018-03-07 10:06 | ECHOF ---
Referral Reason:PRE-BIV-ICD GEN CHANGE/CARDIOMYOPATHY MEASUREMENTS -------- HEIGHT: 160.0 cm WEIGHT: 90.7 kg BP: RVIDd: 2.7 cm (< 3.3) IVSd: 1.4 cm (0.6 - 1.1) LVIDd: 3.9 cm (3.9 - 5.3) LVPWd: 1.3 cm (0.6 - 1.1) IVSs: 1.4 cm LVIDs: 3.1 cm LVPWs: 1.6 cm LAESV Index (A-L): 23.34 ml/m Ao Diam: 2.7 cm (2.0 - 3.7) AV Cusp: 1.4 cm (1.5 - 2.6) LA Diam: 3.3 cm (2.7 - 3.8) MV E Fortino: 0.63 m/s MV DecT: 440 ms MV A Fortino: 1.08 m/s MV E/A Ratio: 0.58 RAP: 5.00 mmHg RVSP: 11.92 mmHg FINDINGS -------- Atrial fibrillation. This was a technically difficult study with suboptimal views. The left ventricular size is normal. There is mild concentric left ventricular hypertrophy. Overa ll left ventricular systolic function is mildly impaired with, an EF between 45 - 50 %. SEPTAL AND ANTERIOR HYPOKINESIS The right ventricle is normal in size and function. Normal LA size by volume 22+/-6 ml/m2. The right atrium was not well visualized. There is mild aortic valve sclerosis. There is no evidence of aortic regurgitation. There is no e vidence of aortic stenosis. Mild mitral annular calcification present. There is trace mitral regurgitation. Trace tricuspid regurgitation present. Right ventricular systolic pressure is normal at < 35 mmHg. There is no evidence of pulmonary hypertension. The pulmonic valve was not well visualized. The aortic root size is normal. Normal inferior vena cava with normal inspiratory collapse consistent with estimated right atrial pre ssure of 5 mmHg. There is no pericardial effusion. 3 ml of Lumason was utilized for enhancement of images. CONCLUSIONS -------- 1. Atrial fibrillation. 2. This was a technically difficult study with suboptimal views. 3. The left ventricular size is normal. 4. There is mild concentric left ventricular hypertrophy. 5. Overall left ventricular systolic function is mildly impaired with, an EF between 45 - 50 %. 6. Normal LA size by volume 22+/-6 ml/m2. 7. The right atrium was not well visualized. 8. 3 ml of Lumason was utilized for enhancement of images. 9. There is mild aortic valve sclerosis. 10. Mild mitral annular calcification present. 11. There is trace mitral regurgitation. 12. Trace tricuspid regurgitation present. 13. Right ventricular systolic pressure is normal at < 35 mmHg. 14. There is no evidence of pulmonary hypertension. 15. The pulmonic valve was not well visualized. 16. The aortic root size is normal. 17. There is no pericardial effusion. CV/CVN CV TSC SYSTEM OPERATOR: Micheal Thompson RDCS
--- NOTE | 2018-03-07 10:21 | PCN ---
PROCEDURE NOTE Nidia Catalan is a 67-year-old female who had a biventricular ICD implanted several years back, the device is at [facility]. She was brought in for an ICD generator change. Patient was brought to the EP lab in a fasting state. Written informed consent was obtained prior to the procedure. The left shoulder area was prepped and draped as per protocol. 1% lidocaine was used for local anesthesia. A 4 cm incision was made parallel to the deltopectoral groove exactly over the previous surgical site and carried down to the level of the generator. The generator was explanted. The leads were freed from the capsule. Partial capsulectomy was performed. Hemostasis was assured. The pocket was irrigated with antibiotic solution. The Bi V ICD generator was explanted. The new generator was implanted, leads were interrogated. The P waves are 3.8 mV. Pacing impedance 456 ohms, pacing threshold 0.75 V at 0.4 milliseconds. RV sensing was 7.8 mV. Pacing impedance 456 ohms. High-voltage impedance 88 ohms, pacing threshold 1.25 V at 0.4 milliseconds. The LV pacing impedance 456 ohms pacing threshold 2.5 V at 0.4 milliseconds. The new generator was implanted. The wound was closed in 3 layers and dressed per protocol. The new generator was a CRTD Medtronic Viva XT, model number DTB A1D, serial number [id number]. Leads and generator were then placed in subfascial pocket. The wound was closed in 3 layers and dressed per protocol. RESULT: Successful biventricular ICD generator change. There is also successful biventricular ICD generator change for device at [facility]. MMCRISTOPHER / IJN: [id number] /
[2018-03-07 11:40] VITALS: BP 116/72; PULSE 65; TEMP 97.7
== END 2018-03-07 14:51 | disposition home or self-care (01) ==
LOC: CATHEP 11:26 → 1SOBS 17:16 → CATHEP 03-07 14:51
PROVIDERS: ATTEND Internal Medicine Clinical Cardiac Electrophysiology
DX: Z45.02 Encounter for adjustment and management of automatic implantable cardiac defibrillator (principal); I48.91 Unspecified atrial fibrillation; I08.3 Combined rheumatic disorders of mitral, aortic and tricuspid valves; I42.0 Dilated cardiomyopathy; I11.0 Hypertensive heart disease with heart failure; I50.22 Chronic systolic (congestive) heart failure; Z91.11 Patient's noncompliance with dietary regimen; Z91.14 Patient's other noncompliance with medication regimen; M79.7 Fibromyalgia; K21.9 Gastro-esophageal reflux disease without esophagitis; E78.5 Hyperlipidemia, unspecified; E07.9 Disorder of thyroid, unspecified; L98.9 Disorder of the skin and subcutaneous tissue, unspecified; I45.2 Bifascicular block; H40.9 Unspecified glaucoma; J30.2 Other seasonal allergic rhinitis; F39 Unspecified mood [affective] disorder; I25.2 Old myocardial infarction; F17.210 Nicotine dependence, cigarettes, uncomplicated; Z79.890 Hormone replacement therapy; Z79.899 Other long term (current) drug therapy; Z79.82 Long term (current) use of aspirin; Z88.6 Allergy status to analgesic agent; Z88.1 Allergy status to other antibiotic agents; Z88.8 Allergy status to other drugs, medicaments and biological substances; Z82.49 Family history of ischemic heart disease and other diseases of the circulatory system
CPT/HCPCS: 33264; C8929; C1882; J2250; J0690 ×3; J2001; J3010; J2370; J2704; Q9950; 93306

== ENCOUNTER → 2019-10-03 | Outpatient (CLI) | payer MEDICARE ==
--- NOTE | 2019-10-03 17:05 | CONS ---
CONSULTATION DATE OF SERVICE: 10/03/2019 This patient is a 69-year-old lady who has been evaluated in the sleep center for possible obstructive sleep apnea-hypopnea syndrome. HISTORY OF PRESENT ILLNESS/SLEEP-WAKE EVALUATION: Patient's usual sleep schedule is from 9 or 11 p.m. until 9 a.m. No problems with falling asleep, but the patient wakes up from sleep 5 times with nocturia. She even knows the exact time when she wakes up: 1 a.m., 3 a.m., 5 a.m. She usually sleeps on the side position. She mentions a positive history of sleepwalking, sleeptalking and sweating. According to her, she may have history of hypnagogic hallucinations. In the morning she wakes up tired, falling asleep during the day. She worries about her sleep, has problems with memory, concentration, depression, anxiety. [place] Sleepiness Scale is in very high range at 18. PAST MEDICAL HISTORY: Positive for COPD, heart problems, including atrial fibrillation, CHF, mitral valve problems, fibromyalgia, sinusitis, headaches, hypothyroidism. PAST SURGICAL HISTORY: Hysterectomy, bladder suspension, pacemaker and defibrillator insertion. MEDICATIONS: Fentanyl, Percocet, Lasix, potassium, clonazepam, omeprazole, hydroxyzine. SOCIAL HISTORY: Positive for smoking one pack a day for 50 years. The patient continues to smoke. Alcohol consumption: None. REVIEW OF SYSTEMS: Multiple awakenings from sleep. Significant sleepiness during the day. PHYSICAL EXAMINATION: GENERAL: A pleasant lady without distress. VITAL SIGNS: BP 138/83, HR 80, RR 16, height 5 feet 3-1/2 inches, weight 204 pounds. Body mass index 35.5. Temperature 98.3, oxygen saturation at room air 94%. HEENT: PERRLA, EOMI. Evaluation of oropharynx showed tongue protrudes midline. Small oropharyngeal air space. Low position of soft palate. Wide pillars. NECK: Supple. No JVD. Thyroid is not palpable. Neck measures 14-1/4 inches in circumference. LUNGS: A few rales. HEART: S1, S2 regular. ABDOMEN: Soft and nontender. Bowel sounds are present. No organomegaly. EXTREMITIES: One plus bilateral ankle edema. CORPORATE SPECIALIST: Awake, alert, and oriented X3. Cranial nerves 2 to 7 intact. There is no fasciculation or atrophy. noted. No focal deficits observed. IMPRESSION: 1. Awakenings from sleep 5 times with nocturia, small oropharyngeal air space, significant excessive daytime sleepiness; obstructive sleep apnea-hypopnea syndrome. 2. Significant excessive daytime sleepiness. [place] Sleepiness Scale is 18, dictating necessity to include hypersomnia in the differential diagnosis. The patient has a questionable positive history of hypnagogic hallucinations. 3. History of sleeptalking. 4. History of sleepwalking. 5. Fifty-pack/year smoker. 6. Chronic obstructive pulmonary disease. 7. History of atrial fibrillation. 8. History of congestive heart failure. 9. History of right bundle branch block. 10.History of fibromyalgia. 11.History of sinusitis. 12.Headaches. 13.Hypothyroidism. PLAN: 1. Polysomnography for evaluation of patient's breathing during sleep. 2. CPAP/BiPAP titration if sleep study confirms obstructive sleep apnea-hypopnea syndrome. 3. Preferable position during sleep on the side. 4. No driving if patient feels any sleepiness. 5. I will see patient for follow-up visit to explain results of testing and following plan. Thank you very much for referring this patient for consultation. Sincerely, Leonides Araiza MD, PhD, FAASM Diplomat of [employer] Lactation Consultant of [facility] [place] MMODL / GRACIELAN: [id number] /
== END | disposition home or self-care (01) ==
CPT/HCPCS: 99211

== ENCOUNTER 2019-10-11 07:24 | Day surgery (SDC) | payer MEDICARE ==
[2019-10-09 16:11] VITALS: BMI 33.1
[~2019-10-11 07:24] MED LIST changes: +LACTATED RINGERS 1,000 ML IV SCH; -ceFAZolin 1,000 MG in SODIUM CHLORIDE 0.9% IRRIGATIO 1,000 ML IRRIGATION ONE; -ceFAZolin 1,000 MG in SODIUM CHLORIDE 0.9% IRRIGATIO 250 ML IRRIGATION ONE; -ceFAZolin 2,000 MG in DEXTROSE/WATER 1 50ML.BAG IVPB STA; -ceFAZolin IN SWFI 2 GM/20 ML SYRINGE IVP STA
[2019-10-11] MEDS ORDERED: SODIUM CHLORIDE 0.9% 500 ML 500 ML IV ONE ×2 (08:12→09:02)
[2019-10-11 08:14] VITALS: RESP 16; TEMP 98.3
[2019-10-11 08:39] LABS: African American GFR (CKD) >90 (>60 ml/min/1.73 sqM); Anion Gap 7 mmol/L; Blood Urea Nitrogen 12 mg/dL (7-17); Calcium 8.6 mg/dL (8.4-10.2); Carbon Dioxide 32 mmol/L (22-30); Chloride 100 mmol/L (98-107); Glucose 96 mg/dL (74-99); Non-African American GFR(CKD) 88 (>60 ml/min/1.73 sqM); Potassium 4.2 mmol/L (3.5-5.1); Sodium 139 mmol/L (137-145)
[2019-10-11] MEDS ORDERED: PROPOFOL 10 MG/ML 20 ML VIAL IV ONE (09:01)
--- NOTE | 2019-10-11 09:36 | P.PCN ---
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 Bipolar pacing impedance is 665 ohms Pacing threshold 2.75 V at 1 ms LV pacing impedance 513 ohms A shock and T wave protocol was used to induce ventricular fibrillation. 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
[2019-10-11 10:34] VITALS: BP 110/60; PULSE 60
== END 2019-10-11 10:34 | disposition home or self-care (01) ==
LOC: CATHEP 07:24
PROVIDERS: ATTEND Internal Medicine Clinical Cardiac Electrophysiology
DX: I42.8 Other cardiomyopathies (principal); I44.7 Left bundle-branch block, unspecified; I11.0 Hypertensive heart disease with heart failure; I50.22 Chronic systolic (congestive) heart failure; I25.2 Old myocardial infarction; E78.5 Hyperlipidemia, unspecified; F17.210 Nicotine dependence, cigarettes, uncomplicated; E07.9 Disorder of thyroid, unspecified; M79.7 Fibromyalgia; J44.9 Chronic obstructive pulmonary disease, unspecified; Z88.2 Allergy status to sulfonamides; Z88.8 Allergy status to other drugs, medicaments and biological substances; Z88.6 Allergy status to analgesic agent; Z79.890 Hormone replacement therapy; Z79.82 Long term (current) use of aspirin; Z79.51 Long term (current) use of inhaled steroids; Z79.899 Other long term (current) drug therapy
CPT/HCPCS: 93642; 76000; 80048; J2704

== ENCOUNTER → 2020-10-30 | Outpatient (CLI) | payer MEDICARE ==
--- NOTE | 2020-10-30 22:13 | CT ---
EXAMINATION TYPE: CT angio neck DATE OF EXAM: 10/30/2020 HISTORY: Right carotid stenosis. COMPARISON: None CT DLP: 257.9 mGycm. Automated Exposure Control for Dose Reduction was Utilized. TECHNIQUE: CTA scan of the neck is performed with IV Contrast, patient injected with 65 mL of Isovue 370, axial images are obtained, coronal and sagittal reformatted images are reviewed. Three-D recons tructed images are created on an independent workstation and reviewed. FINDINGS: Carotid/Vascular Structures: Three-vessel aortic arch. Atherosclerotic disease at the origin of the b ranch vessels without significant stenosis. Atherosclerotic plaque at the carotid bifurcations with 6 5% stenosis of the proximal right and 40% stenosis of the proximal left ICA. Atherosclerotic disease at the origin of the left vertebral artery remaining vessel is opacified. The right vertebral artery is opacified throughout its course. Intracranial vessels are Throughout its course Other: Emphysematous changes and a few small groundglass opacities at the lung apices. Visualized ai rway is patent. Degenerative changes of the spine. Partially calcified nodule of the right lobe of th e thyroid IMPRESSION: Atherosclerotic plaque at the carotid bifurcations with 65% stenosis of the proximal rig ht and 45% stenosis of the proximal left ICA. 3-D reformatted images confirm the above findings. NASCET criteria was used in interpretation of this exam?
== END | disposition home or self-care (01) ==
LOC: RADCTMAIN 14:07
PROVIDERS: ATTEND Thoracic Surgery (Cardiothoracic Vascular Surgery)
DX: I65.23 Occlusion and stenosis of bilateral carotid arteries (principal)
CPT/HCPCS: 82565; 84520; 70498; 36415; Q9967

== ENCOUNTER 2023-06-02 07:59 | Emergency (ER) | payer MEDICARE ==
--- NOTE | 2023-06-02 08:24 | ED ---
General Adult HPI - General Chief complaint: Recheck/Abnormal Lab/Rx Stated complaint: chronic pain Time Seen by Provider: 06/02/23 08:10 Source: patient, RN notes reviewed Mode of arrival: wheelchair Limitations: no limitations - History of Present Illness Initial comments: Patient is a 73-year-old female present to the emergency department with concer ns for chronic pain. Patient states she was taken off all of her pain medication in February. Patient lost her primary care physician and just got a new one a week ago. Patient is trying to get into a pain clinic. Patient does have fibromyalgia. Patient has pain from the top of her head to her knees. Pain is chronic and similar to previous pain. Patient also feels anxious. - Related Data Home Medications Medication Instructions Recorded Confirmed ondansetron HCL [Ondansetron HCl] 4 mg PO TID PRN 01/05/14 10/11/19 Benzonatate [Tessalon Perles] 100 mg PO TID PRN 01/06/14 10/11/19 Levothyroxine Sodium [Synthroid] 125 mcg PO HS 01/06/14 10/11/19 Omeprazole [PriLOSEC] 20 mg PO BID 01/06/14 10/11/19 Potassium Chloride [Klor-Con 10] 10 meq PO BID 01/06/14 10/11/19 tiZANidine HCL [Zanaflex] 8 mg PO TID 01/06/14 10/11/19 Aspirin 325 mg PO BID 08/31/16 10/11/19 Dextran 70/Hypromellose [Genteal 1 drop BOTH EYES DAILY 08/31/16 10/11/19 Tears 0.1%-0.3% Drop] Furosemide [Lasix] 20 mg PO HS 08/31/16 10/11/19 Furosemide [Lasix] 40 mg PO BID@0900,1400 08/31/16 10/11/19 Latanoprost Ophth [Xalatan 0.005%] 1 drop BOTH EYES HS 08/31/16 10/11/19 oxyCODONE-APAP 10-325MG [Percocet 1 tab PO Q4-6H PRN 08/31/16 10/11/19 10-325 mg] traZODone HCL [Desyrel] 25 mg PO HS PRN 08/31/16 10/11/19 DULoxetine HCL [Cymbalta] 120 mg PO HS 01/04/18 10/11/19 clonazePAM [KlonoPIN] 2 mg PO HS PRN 01/04/18 10/11/19 fentaNYL 75MCG/HR PATCH [Duragesic 1 patch TOPICAL Q2D 03/01/18 10/11/19 75MCG/HR] hydrOXYzine HCL [Atarax] 50 mg PO TID PRN 03/01/18 10/11/19 Brimonidine Tartrate [Alphagan P 1 drops BOTH EYES DIRECTED 10/09/19 10/11/19 0.1% Ophth Soln] Budesonide/Formoterol Fumarate 2 puff INHALATION BID 10/09/19 10/11/19 [Symbicort 160-4.5 Mcg Inhaler] metOLazone [Zaroxolyn] 5 mg PO DAILY PRN 10/09/19 10/11/19 Allergies Allergy/AdvReac Type Severity Reaction Status Date / Time doxycycline Allergy Swelling Verified 06/02/23 08:03 sulfamethoxazole AdvReac Severe Nausea Verified 06/02/23 08:03 [From Bactrim] trimethoprim [From Bactrim] AdvReac Severe Nausea Verified 06/02/23 08:03 allopurinol AdvReac "kidneys Verified 06/02/23 08:03 shut down" gabapentin [From Neurontin] AdvReac Nausea & Verified 06/02/23 08:03 Vomiting peppermint AdvReac Vomiting Verified 06/02/23 08:03 pregabalin [From Lyrica] AdvReac "memory Verified 06/02/23 08:03 loss" Cqloyew-YCI-UvU Reductase AdvReac PAINFUL Verified 06/02/23 08:03 Inhibitor JOINTS [Btzjlrt-Ndq-Uzn Reductase Inhibitor] suvorexant [From Belsomra] AdvReac Hallucinati Verified 06/02/23 08:03 ons vortioxetine AdvReac severe Verified 06/02/23 08:03 [From Trintellix] depression Review of Systems ROS Statement: Those systems with pertinent positive or pertinent negative responses have been documented in the HPI. ROS Other: All systems not noted in ROS Statement are negative. Constitutional: Denies: fever Eyes: Denies: eye pain ENT: Denies: ear pain Respiratory: Denies: cough, dyspnea Cardiovascular: Denies: chest pain Endocrine: Denies: fatigue Gastrointestinal: Denies: abdominal pain Musculoskeletal: Reports: as per HPI Skin: Denies: rash Neurological: Denies: headache, weakness Past Medical History Past Medical History: Heart Failure, Eye Disorder, Fibromyalgia, GERD/Reflux, Hyperlipidemia, Myocardial Infarction ([place]), Skin Disorder, Thyroid Disorder Additional Past Medical History / Comment(s): PACEMAKER/DEFIBRILLATOR. Carotid Stenosis. Congential MVP. RBBB. Hx viral meningitis. EPISODE OF KIDNEY FAILURE X1. GLAUCOMA MARIAN EYES. "TEND TO GET LOW BLOOD SUGAR." SEASONAL ALLERGIES/SINUS. See Dr Leo's H&P. PT STATES SHE HAS NO B/P PROBLEMS Last Myocardial Infarction Date:: UNKNOWN History of Any Multi-Drug Resistant Organisms: None Reported Past Surgical History: AICD, Bladder Surgery, Heart Catheterization, Hysterectomy, Pacemaker Additional Past Surgical History / Comment(s): 2 Failed Bladder Suspensions. MARIAN CATARACTS. Past Anesthesia/Blood Transfusion Reactions: Blood Transfusion Reaction Additional Past Anesthesia/Blood Transfusion Reaction / Comment(s): DEVELOPED WELTS ON BUTTOCKS W/ TRANSFUSION IN PAST. Type of Cardiac Device: Permanent Pacemaker, AICD Device Placement Date:: 09/2012 Past Psychological History: Anxiety, Depression Past Alcohol Use History: None Reported Past Drug Use History: None Reported - Past Family History Father Family Medical History: Coronary Artery Disease (CAD) Mother Family Medical History: Cancer General Exam Limitations: no limitations General appearance: alert, in no apparent distress Head exam: Present: atraumatic Eye exam: Present: normal appearance Neck exam: Present: normal inspection. Absent: tenderness Respiratory exam: Present: normal lung sounds bilaterally Cardiovascular Exam: Present: regular rate, normal rhythm GI/Abdominal exam: Present: soft. Absent: tenderness Extremities exam: Present: normal inspection Neurological exam: Present: alert Psychiatric exam: Present: anxious Course Vital Signs 06/02/23 08:00 Temperature 98.3 F Pulse Rate 94 Respiratory 24 Rate Blood Pressure 179/95 O2 Sat by Pulse 100 Oximetry Medical Decision Making - Medical Decision Making Was pt. sent in by a medical professional or institution (, PA, FARM MANAGEMENT SUPERVISOR, urgent care, hospital, or prison...) When possible be specific @ -No Did you speak to anyone other than the patient for history (EMS, parent, family, police, friend...)? What history was obtained from this source @ -No Did you review nursing and triage notes (agree or disagree)? Why? @ -I reviewed and agree with nursing and triage notes Were old charts reviewed (outside hosp., previous admission, EMS record, old EKG, old radiological studies, urgent care reports/EKG's, prison records)? Report findings @ -Previous medications reviewed including fentanyl patch, Percocet and Differential Diagnosis (chest pain, altered mental status, abdominal pain women, abdominal pain men, vaginal bleeding, weakness, fever, dyspnea, syncope, headache, dizziness, GI bleed, back pain, seizure, CVA, palpatations, mental health, musculoskeletal)? @ -Differential Musculoskeletal Muscular strain, contusion, ligament sprain, fracture, arthritis, septic arthritis, bursitis, cellulitis, muscle spasm, nerve compression, DVT, arterial occlusion, herpes zoster, electrolyte abnormality, tumor.... This is not meant to be in all inclusive list EKG interpreted by me (3pts min.). @ -As above X-rays interpreted by me (1pt min.). @ -None done CT interpreted by me (1pt min.). @ -None done U/S interpreted by me (1pt. min.). @ -None done What testing was considered but not performed or refused? (CT, X-rays, U/S, labs)? Why? @ -None What meds were considered but not given or refused? Why? @ -None Did you discuss the management of the patient with other professionals (professionals i.e. , PA, FARM MANAGEMENT SUPERVISOR, lab, RT, psych nurse, director of social media marketing, necktie centralizing machine operator, teacher, soil science technical officer, corrections caseworker)? Give summary @ -No Was smoking cessation discussed for >3mins.? @ -No Was critical care preformed (if so, how long)? @ -No Were there social determinants of health that impacted care today? How? (Homelessness, low income, unemployed, alcoholism, drug addiction, transportation, low edu. Level, literacy, decrease access to med. care, long term, rehab)? @ -No Was there de-escalation of care discussed even if they declined (Discuss DNR or withdrawal of care, Hospice)? DNR status @ -No What co-morbidities impacted this encounter? (DM, HTN, Smoking, COPD, CAD, Cancer, CVA, ARF, Chemo, Hep., AIDS, mental health diagnosis, sleep apnea, morbid obesity)? @ -None Was patient admitted / discharged? Hospital course, mention meds given and route, prescriptions, significant lab abnormalities, going to OR and other pertinent info. @ -Patient presents with anxiety and chronic pain. Patient has been off her pain medication for months. Patient is receptive to injection and Tylenol with 3 starter pack. Patient also request medication for anxiety and will be provided 1 Ativan to take home with her Undiagnosed new problem with uncertain prognosis? @ -No Drug Therapy requiring intensive monitoring for toxicity (Heparin, Nitro, Insulin, Cardizem)? @ -No Were any procedures done? @ -No Diagnosis/symptom? @ -Chronic pain, anxiety Acute, or Chronic, or Acute on Chronic? @ -Chronic, acute Uncomplicated (without systemic symptoms) or Complicated (systemic symptoms)? @ -Default Side effects of treatment? @ -No Exacerbation, Progression, or Severe Exacerbation? @ -No Poses a threat to life or bodily function? How? (Chest pain, [place], [place], pneumonia, PE, COPD, DKA, ARF, appy, cholecystitis, CVA, Diverticulitis, Homicidal, Suicidal, threat to staff... and all critical care pts) @ -No Disposition Clinical Impression: Chronic pain, Anxiety Disposition: HOME SELF-CARE Condition: Stable Instructions (If sedation given, give patient instructions): Chronic Pain (ED), Fibromyalgia (ED), Anxiety (ED) Additional Instructions: Please do follow-up with your primary care physician in the next day or 2 for recheck. Please follow-up with pain clinic as planned. Return for weakness, change or worsening symptoms, fevers or other concerns Is patient prescribed a controlled substance at d/c from ED?: No Referrals: Sana Montoya MD [Primary Care Provider] - 1-2 days Time of Disposition: 08:24
[2023-06-02] MEDS: ACET/COD 300 MG/30 MG STARTER PACK 6 TAB BTL PO STA (08:31)
[2023-06-02] MEDS: MORPHINE SULFATE 4 MG/ML SYRINGE IM STA (08:32)
[2023-06-02] MEDS: LORazepam 1 MG TAB PO STA (08:32)
[2023-06-02] MEDS: KETOROLAC 15 MG/ML 1 ML VIAL IM STA (08:32)
[2023-06-02 09:10] VITALS: BP 179/95; PULSE 94; RESP 24; TEMP 98.3
== END 2023-06-02 08:25 | disposition home or self-care (01) ==
LOC: EC 07:59
DX: G89.29 Other chronic pain (principal); F41.9 Anxiety disorder, unspecified; E78.5 Hyperlipidemia, unspecified; F32.A Depression, unspecified; I25.2 Old myocardial infarction; I50.9 Heart failure, unspecified; K21.9 Gastro-esophageal reflux disease without esophagitis; E07.9 Disorder of thyroid, unspecified; Z79.890 Hormone replacement therapy; Z79.51 Long term (current) use of inhaled steroids; Z79.899 Other long term (current) drug therapy; Z88.1 Allergy status to other antibiotic agents; Z88.2 Allergy status to sulfonamides; Z88.8 Allergy status to other drugs, medicaments and biological substances
CPT/HCPCS: 99283; 96372 ×2; J2270; J1885

== ENCOUNTER 2023-06-04 10:18 | Emergency (ER) | payer MEDICARE ==
[2023-06-04 10:37] VITALS: TEMP 98
--- NOTE | 2023-06-04 11:03 | ED ---
General Adult HPI - General Chief complaint: Arrhythmia/Palpitations Stated complaint: Pain Patch Withdrawl Time Seen by Provider: 06/04/23 10:30 Source: patient, RN notes reviewed, old records reviewed Mode of arrival: ambulatory Limitations: no limitations - History of Present Illness Initial comments: This is a 73-year-old female who presents to the emergency department stating that she thinks she is withdrawing from her pain patches. Patient states her pain patches were last prescribed in December which she states she kept them in a door and did not use them and she has been using them lately and the last one was taken off 5 days ago. Patient states since then she feels as though she is having pain in her muscles in her legs thighs arms and across her abdomen. Patient states this is secondary to the fact that she has fibromyalgia. Patient denies any fever chills or cough patient denies any chest pain daily breathing shortness of breath. Patient has any palpitations. Patient has a headache patient has numbness weakness. Patient states she just feels agitated and feels as though she is withdrawing. - Related Data Home Medications Medication Instructions Recorded Confirmed ondansetron HCL [Ondansetron HCl] 4 mg PO TID PRN 01/05/14 10/11/19 Benzonatate [Tessalon Perles] 100 mg PO TID PRN 01/06/14 10/11/19 Levothyroxine Sodium [Synthroid] 125 mcg PO HS 01/06/14 10/11/19 Omeprazole [PriLOSEC] 20 mg PO BID 01/06/14 10/11/19 Potassium Chloride [Klor-Con 10] 10 meq PO BID 01/06/14 10/11/19 tiZANidine HCL [Zanaflex] 8 mg PO TID 01/06/14 10/11/19 Aspirin 325 mg PO BID 08/31/16 10/11/19 Dextran 70/Hypromellose [Genteal 1 drop BOTH EYES DAILY 08/31/16 10/11/19 Tears 0.1%-0.3% Drop] Furosemide [Lasix] 20 mg PO HS 08/31/16 10/11/19 Furosemide [Lasix] 40 mg PO BID@0900,1400 08/31/16 10/11/19 Latanoprost Ophth [Xalatan 0.005%] 1 drop BOTH EYES HS 08/31/16 10/11/19 oxyCODONE-APAP 10-325MG [Percocet 1 tab PO Q4-6H PRN 08/31/16 10/11/19 10-325 mg] traZODone HCL [Desyrel] 25 mg PO HS PRN 08/31/16 10/11/19 DULoxetine HCL [Cymbalta] 120 mg PO HS 01/04/18 10/11/19 clonazePAM [KlonoPIN] 2 mg PO HS PRN 01/04/18 10/11/19 fentaNYL 75MCG/HR PATCH [Duragesic 1 patch TOPICAL Q2D 03/01/18 10/11/19 75MCG/HR] hydrOXYzine HCL [Atarax] 50 mg PO TID PRN 03/01/18 10/11/19 Brimonidine Tartrate [Alphagan P 1 drops BOTH EYES DIRECTED 10/09/19 10/11/19 0.1% Ophth Soln] Budesonide/Formoterol Fumarate 2 puff INHALATION BID 10/09/19 10/11/19 [Symbicort 160-4.5 Mcg Inhaler] metOLazone [Zaroxolyn] 5 mg PO DAILY PRN 10/09/19 10/11/19 Previous Rx's Medication Instructions Recorded Cyclobenzaprine [Flexeril] 10 mg PO TID #20 tab 06/04/23 Ketorolac [Toradol] 10 mg PO Q6HR #15 tab 06/04/23 Allergies Allergy/AdvReac Type Severity Reaction Status Date / Time doxycycline Allergy Swelling Verified 06/04/23 10:34 sulfamethoxazole AdvReac Severe Nausea Verified 06/04/23 10:34 [From Bactrim] trimethoprim [From Bactrim] AdvReac Severe Nausea Verified 06/04/23 10:34 allopurinol AdvReac "kidneys Verified 06/04/23 10:34 shut down" gabapentin [From Neurontin] AdvReac Nausea & Verified 06/04/23 10:34 Vomiting peppermint AdvReac Vomiting Verified 06/04/23 10:34 pregabalin [From Lyrica] AdvReac "memory Verified 06/04/23 10:34 loss" Vjclcxz-YTT-LdL Reductase AdvReac PAINFUL Verified 06/04/23 10:34 Inhibitor JOINTS [Xylnfpc-Oee-Rgu Reductase Inhibitor] suvorexant [From Belsomra] AdvReac Hallucinati Verified 06/04/23 10:34 ons vortioxetine AdvReac severe Verified 06/04/23 10:34 [From Trintellix] depression Review of Systems ROS Statement: Those systems with pertinent positive or pertinent negative responses have been documented in the HPI. ROS Other: All systems not noted in ROS Statement are negative. Past Medical History Past Medical History: Atrial Fibrillation, Heart Failure, Eye Disorder, Fibromyalgia, GERD/Reflux, Hyperlipidemia, Myocardial Infarction ([place]), Skin Disorder, Thyroid Disorder Additional Past Medical History / Comment(s): PACEMAKER/DEFIBRILLATOR. Carotid Stenosis. Congential MVP. RBBB. Hx viral meningitis. EPISODE OF KIDNEY FAILURE X1. GLAUCOMA MARIAN EYES. "TEND TO GET LOW BLOOD SUGAR." SEASONAL ALLERGIES/SINUS. See Dr Leo's H&P. PT STATES SHE HAS NO B/P PROBLEMS Last Myocardial Infarction Date:: UNKNOWN History of Any Multi-Drug Resistant Organisms: None Reported Past Surgical History: AICD, Bladder Surgery, Heart Catheterization, Hysterectomy, Pacemaker Additional Past Surgical History / Comment(s): 2 Failed Bladder Suspensions. MARIAN CATARACTS. Past Anesthesia/Blood Transfusion Reactions: Blood Transfusion Reaction Additional Past Anesthesia/Blood Transfusion Reaction / Comment(s): DEVELOPED WELTS ON BUTTOCKS W/ TRANSFUSION IN PAST. Type of Cardiac Device: Permanent Pacemaker, AICD Device Placement Date:: 09/2012 Past Psychological History: Anxiety, Depression Past Alcohol Use History: None Reported Past Drug Use History: None Reported - Past Family History Father Family Medical History: Coronary Artery Disease (CAD) Mother Family Medical History: Cancer General Exam - General Exam Comments Initial Comments: GENERAL: Patient is well-developed and well-nourished. Patient is nontoxic and well- hydrated and is in no acute distress. ENT: Neck is soft and supple. No significant lymphadenopathy is noted. Oropharynx is clear. Moist mucous membranes. Neck has full range of motion without eliciting any pain. EYES: The sclera were anicteric and conjunctiva were pink and moist. Extraocular movements were intact and pupils were equal round and reactive to light. Eyelids were unremarkable. PULMONARY: Unlabored respirations. Good breath sounds bilaterally. No audible rales rhonchi or wheezing was noted. CARDIOVASCULAR: There is a regular rate and rhythm without any murmurs gallops or rubs. ABDOMEN: Soft and nontender with normal bowel sounds. SKIN: Skin is clear with no lesions or rashes and otherwise unremarkable. NEUROLOGIC: Patient is alert and oriented x3. Cranial nerves II through XII are grossly intact. Motor and sensory are also intact. Normal speech, volume and content. Symmetrical smile. MUSCULOSKELETAL: Normal extremities with adequate strength and full range of motion. No lower extremity swelling or edema. No calf tenderness. LYMPHATICS: No significant lymphadenopathy is noted PSYCHIATRIC: Normal psychiatric evaluation. Limitations: no limitations Course Vital Signs 06/04/23 06/04/23 10:28 10:50 Temperature 98 F Pulse Rate 70 73 Respiratory 18 20 Rate Blood Pressure 103/68 118/88 O2 Sat by Pulse 99 98 Oximetry Medical Decision Making - Medical Decision Making EKG is interpreted by myself EKG shows a sinus rhythm at 65 bpm CA interval is 155 QRS 152 QT interval 444 QTc is 456. Patient's EKG shows no ST segment elevation. Patient has a left bundle branch block Was pt. sent in by a medical professional or institution (Dr. PA, OUTSOLE CUTTER MACHINE, urgent care, hospital, or senior care...) When possible be specific @ -No Did you speak to anyone other than the patient for history (EMS, parent, family, police, friend...)? What history was obtained from this source @ -No Did you review nursing and triage notes (agree or disagree)? Why? @ -I reviewed and agree with nursing and triage notes Were old charts reviewed (outside hosp., previous admission, EMS record, old EKG, old radiological studies, urgent care reports/EKG's, senior care records)? Report findings @ -I reviewed prior charts and lab work on this patient Differential Diagnosis (chest pain, altered mental status, abdominal pain women, abdominal pain men, vaginal bleeding, weakness, fever, dyspnea, syncope, head ache, dizziness, GI bleed, back pain, seizure, CVA, palpatations, mental health, musculoskeletal)? @ -Differential Musculoskeletal Muscular strain, contusion, ligament sprain, fracture, arthritis, septic arthritis, bursitis, cellulitis, muscle spasm, nerve compression, DVT, arterial occlusion, herpes zoster, electrolyte abnormality, tumor.... This is not meant to be in all inclusive list EKG interpreted by me (3pts min.). @ -As above X-rays interpreted by me (1pt min.). @ -None done CT interpreted by me (1pt min.). @ -None done U/S interpreted by me (1pt. min.). @ -None done What testing was considered but not performed or refused? (CT, X-rays, U/S, labs)? Why? @ -None What meds were considered but not given or refused? Why? @ -None Did you discuss the management of the patient with other professionals (professionals i.e. DrMaulik, PA, OUTSOLE CUTTER MACHINE, lab, RT, psych nurse, social studies teacher, programmer developer, teacher, administrative hearing officer, bilingual patient support caseworker)? Give summary @ -No Was smoking cessation discussed for >3mins.? @ -No Was critical care preformed (if so, how long)? @ -No Were there social determinants of health that impacted care today? How? (Homelessness, low income, unemployed, alcoholism, drug addiction, trans portation, low edu. Level, literacy, decrease access to med. care, care home, rehab)? @ -No Was there de-escalation of care discussed even if they declined (Discuss DNR or withdrawal of care, Hospice)? DNR status @ -No What co-morbidities impacted this encounter? (DM, HTN, Smoking, COPD, CAD, Cancer, CVA, ARF, Chemo, Hep., AIDS, mental health diagnosis, sleep apnea, morbid obesity)? @ -None Was patient admitted / discharged? Hospital course, mention meds given and route, prescriptions, significant lab abnormalities, going to OR and other pertinent info. @ -Patient was given Toradol and Valium I went back into reevaluate the patient she was sleeping and when I spoke with her she stated she was much more comfortable. Patient had no complaints at this time Undiagnosed new problem with uncertain prognosis? @ -No Drug Therapy requiring intensive monitoring for toxicity (Heparin, Nitro, Insulin, Cardizem)? @ -No Were any procedures done? @ -No Diagnosis/symptom? @ -Muscle spasms Acute, or Chronic, or Acute on Chronic? @ -Acute Uncomplicated (without systemic symptoms) or Complicated (systemic symptoms)? @ -Uncomplicated Side effects of treatment? @ -No Exacerbation, Progression, or Severe Exacerbation? @ -No Poses a threat to life or bodily function? How? (Chest pain, [place], [place], pneumonia, PE, COPD, DKA, ARF, appy, cholecystitis, CVA, Diverticulitis, Homicidal, Suicidal, threat to staff... and all critical care pts) @ -No - Lab Data Result diagrams: 06/04/23 11:00 06/04/23 11:00 Lab Results 06/04/23 06/04/23 06/04/23 Range/Units 11:00 11:00 11:00 WBC 11.7 H (3.8-10.6) k/uL RBC 5.26 (3.80-5.40) m/uL Hgb 14.8 (11.4-16.0) gm/dL Hct 45.5 (34.0-46.0) % MCV 86.6 (80.0-100.0) fL MCH 28.1 (25.0-35.0) pg MCHC 32.5 (31.0-37.0) g/dL RDW 14.7 (11.5-15.5) % Plt Count 233 (150-450) k/uL MPV 7.0 Neutrophils % 71 % Lymphocytes % 23 % Monocytes % 4 % Eosinophils % 1 % Basophils % 1 % Neutrophils # 8.3 H (1.3-7.7) k/uL Lymphocytes # 2.6 (1.0-4.8) k/uL Monocytes # 0.5 (0-1.0) k/uL Eosinophils # 0.1 (0-0.7) k/uL Basophils # 0.1 (0-0.2) k/uL Sodium 140 (137-145) mmol/L Potassium 4.3 (3.5-5.1) mmol/L Chloride 104 (98-107) mmol/L Carbon Dioxide 29 (22-30) mmol/L Anion Gap 7 mmol/L BUN 18 H (7-17) mg/dL Creatinine 0.62 (0.52-1.04) mg/dL Est GFR (CKD-EPI)AfAm >90 (>60 ml/min/1.73 sqM) Est GFR (CKD-EPI)NonAf 89 (>60 ml/min/1.73 sqM) Glucose 75 (74-99) mg/dL Calcium 10.1 (8.4-10.2) mg/dL Magnesium 1.7 (1.6-2.3) mg/dL Total Bilirubin 0.6 (0.2-1.3) mg/dL AST 23 (14-36) U/L ALT 12 (4-34) U/L Alkaline Phosphatase 69 (38-126) U/L Creatine Kinase 70 (30-135) U/L Troponin I <0.012 (0.000-0.034) ng/mL Total Protein 7.2 (6.3-8.2) g/dL Albumin 4.1 (3.5-5.0) g/dL Disposition Clinical Impression: Muscle spasm Disposition: HOME SELF-CARE Condition: Good Prescriptions: Cyclobenzaprine [Flexeril] 10 mg PO TID #20 tab Ketorolac [Toradol] 10 mg PO Q6HR #15 tab Is patient prescribed a controlled substance at d/c from ED?: No Referrals: Sana Montoya MD [Primary Care Provider] - 1-2 days Time of Disposition: 11:57
[2023-06-04 11:21] LABS: Basophils # (A) 0.1 k/uL (0-0.2); Basophils % (A) 1 %; Eosinophils # (A) 0.1 k/uL (0-0.7); Eosinophils % (A) 1 %; HCT 45.5 % (34.0-46.0); HGB 14.8 gm/dL (11.4-16.0); Lymphocytes # (A) 2.6 k/uL (1.0-4.8); Lymphocytes % (A) 23 %; MCH 28.1 pg (25.0-35.0); MCHC 32.5 g/dL (31.0-37.0); MCV 86.6 fL (80.0-100.0); Monocytes # (A) 0.5 k/uL (0-1.0); Monocytes % (A) 4 %; Neutrophils # (A) 8.3 k/uL (1.3-7.7); Neutrophils % (A) 71 %; Platelet Count 233 k/uL (150-450); RBC 5.26 m/uL (3.80-5.40); RDW 14.7 % (11.5-15.5); WBC 11.7 k/uL (3.8-10.6)
[2023-06-04] MEDS: SODIUM CHLORIDE 0.9% 500 ML 500 ML IV STA (11:30)
[2023-06-04] MEDS: KETOROLAC 15 MG/ML 1 ML VIAL IVP STA (11:31)
[2023-06-04 11:35] LABS: ALT 12 U/L (4-34); AST 23 U/L (14-36); African American GFR (CKD) >90 (>60 ml/min/1.73 sqM); Albumin 4.1 g/dL (3.5-5.0); Alkaline Phosphatase 69 U/L (38-126); Anion Gap 7 mmol/L; Blood Urea Nitrogen 18 mg/dL (7-17); Calcium 10.1 mg/dL (8.4-10.2); Carbon Dioxide 29 mmol/L (22-30); Chloride 104 mmol/L (98-107); Creatine Kinase 70 U/L (30-135); Glucose 75 mg/dL (74-99); Magnesium 1.7 mg/dL (1.6-2.3); Non-African American GFR(CKD) 89 (>60 ml/min/1.73 sqM); Potassium 4.3 mmol/L (3.5-5.1); Sodium 140 mmol/L (137-145); Total Bilirubin 0.6 mg/dL (0.2-1.3); Total Protein 7.2 g/dL (6.3-8.2)
[2023-06-04] MEDS: traMADol 50 MG STARTER PACK 3 TAB BTL PO STA (12:12)
[2023-06-04 12:52] VITALS: BP 160/86; PULSE 70; RESP 18
== END 2023-06-04 12:21 | disposition home or self-care (01) ==
LOC: EC 10:18
DX: M62.838 Other muscle spasm (principal); I44.7 Left bundle-branch block, unspecified; Z88.1 Allergy status to other antibiotic agents; Z88.2 Allergy status to sulfonamides; Z88.8 Allergy status to other drugs, medicaments and biological substances; Z91.018 Allergy to other foods
CPT/HCPCS: 36415; 93005; 80053; 82550; 83735; 84484; 85025; 99285; 96374; 96375; J3360; J1885